=== PATIENT | female | born 1955 | race African-American/Black ===

== ENCOUNTER 2022-05-08 09:47 | Emergency (ER) | payer MEDICARE ==
[~2022-05-08] VITALS: Ht 162.6 cm; Wt 66.0 kg
[2022-05-08] MEDS ORDERED: METF500T13 PO (10:17)
[2022-05-08] MEDS ORDERED: PANT40TA29 PO ×2 (10:18→12:02)
[2022-05-08] MEDS ORDERED: METF-839 PO (12:02)
[2022-05-08 12:22] VITALS: BP 126/73
== END 2022-05-08 12:25 | disposition home or self-care (01) ==
LOC: M ED 09:47
DX: Z76.0 Encounter for issue of repeat prescription (principal); E11.9 Type 2 diabetes mellitus without complications; Z86.73 Personal history of transient ischemic attack (TIA), and cerebral infarction without residual deficits; Z79.84 Long term (current) use of oral hypoglycemic drugs; Z79.899 Other long term (current) drug therapy